=== PATIENT | female | born 1960 | race African-American/Black ===

== ENCOUNTER 2018-10-13 14:15 | Inpatient (IN) ==
[2018-10-13 17:23] LABS: Basophils % 0.3 % (0.0-0.8); Eosinophils # 0.1 10*3/uL (0.0-0.87); Eosinophils % 0.5 % (0.00-10.9); Hematocrit 33.6 VOL% (35.7-47.0); Hemoglobin 10.4 GM/DL (12.0-16.0); Immature Granulocytes % 0.5 %; Immature Granulocytes Absolute 0.07 #; Lymphocytes # 0.7 10*3/uL (1.4-4.0); Lymphocytes % 5.2 % (21.3-54.2); Mean Corpuscular Volume 84.8 FL (87-102); Mean Platelet Volume 8.1 FL (9.6-12.0); Monocytes % 7.4 % (1.7-12.7); Neutrophils % 86.1 % (38.7-73.9); Platelet Count 496 T/CUMM (130-400); Red Blood Count 3.96 MC/CUMM (3.8-5.5); Red Cell Distribution Width 15.7 % (9.3-17.3); White Blood Count 13.6 T/CUMM (4-12)
[2018-10-13 17:32] LABS: INR 1.1; PT Patient Result 11.4 SECS (9.6-12.2)
[2018-10-13 17:46] LABS: Calcium 9.1 MG/DL (8.5-10.1); Osmolality,Calculated 263.4 MOS/KG (273-304)
[2018-10-13] MEDS ORDERED: ONDANSETRON 4 MG/2 ML VIAL IV PRN (19:09)
[2018-10-13] MEDS: ENOXAPARIN 80 MG/0.8 ML SYRINGE SUBCUT SCH (20:39)
[2018-10-13] MEDS: GABAPENTIN 300 MG CAPSULE PO SCH ×2 (20:45→21:59)
[2018-10-13] MEDS: SODIUM CHLORIDE 0.9% 1,000 ML IV SCH (21:59)
[2018-10-14] MEDS ORDERED: traZODone 50 MG TABLET PO ONE (00:15)
[2018-10-14 04:44] LABS: Basophils % 0.3 % (0.0-0.8); Eosinophils # 0.1 10*3/uL (0.0-0.87); Eosinophils % 0.4 % (0.00-10.9); Hematocrit 27.1 VOL% (35.7-47.0); Hemoglobin 8.7 GM/DL (12.0-16.0); Immature Granulocytes % 0.5 %; Immature Granulocytes Absolute 0.06 #; Lymphocytes # 0.5 10*3/uL (1.4-4.0); Lymphocytes % 4.4 % (21.3-54.2); Mean Corpuscular HGB Conc 32.1 GM/DL (32-36); Mean Corpuscular Volume 83.1 FL (87-102); Mean Platelet Volume 8.6 FL (9.6-12.0); Monocytes % 8.3 % (1.7-12.7); Neutrophils % 86.1 % (38.7-73.9); Platelet Count 469 T/CUMM (130-400); Red Blood Count 3.26 MC/CUMM (3.8-5.5); Red Cell Distribution Width 15.5 % (9.3-17.3); White Blood Count 11.2 T/CUMM (4-12)
[2018-10-14 04:48] LABS: INR 1.1; PT Patient Result 11.8 SECS (9.6-12.2); Partial Thromboplastin Time 38.9 SECS (20.8-36.0)
[2018-10-14 05:05] LABS: Calcium 8.7 MG/DL (8.5-10.1)
[2018-10-14 05:06] LABS: Eosinophils 3 % (0-10); Hypochromasia 1+; Lymphocytes 4 % (20-55); Ovalocytes Slight; Platelet Estimate Adequate; Segmented Neutrophils 87 % (50-85); Total Cells Counted 100
[2018-10-14] MEDS: SODIUM CHLORIDE 0.9% 1,000 ML IV SCH ×3 (05:37→21:26)
[2018-10-14] MEDS: GABAPENTIN 300 MG CAPSULE PO SCH ×4 (08:55→20:31)
[2018-10-14] MEDS: PANTOPRAZOLE 40 MG TABLET PO SCH (08:55)
[2018-10-14] MEDS: ENOXAPARIN 80 MG/0.8 ML SYRINGE SUBCUT SCH (09:36)
[2018-10-14] MEDS: POLYETHYLENE GLYCOL POWDER 17 GM PACK PO SCH (10:47)
[2018-10-14] MEDS: POTASSIUM CHLORIDE 20 MEQ TABLET PO SCH ×2 (10:47→16:07)
[2018-10-14] MEDS: amLODIPine 10 MG TABLET PO SCH (16:07)
[2018-10-14 16:08] LABS: Hematocrit 27.9 VOL% (35.7-47.0); Hemoglobin 8.7 GM/DL (12.0-16.0)
[2018-10-14] MEDS: APIXABAN 5 MG TABLET PO SCH (20:26)
[2018-10-15] MEDS: SODIUM CHLORIDE 0.9% 1,000 ML IV SCH ×2 (05:02→12:40)
[2018-10-15] MEDS: POLYETHYLENE GLYCOL POWDER 17 GM PACK PO SCH ×2 (08:09→08:10)
[2018-10-15] MEDS: APIXABAN 5 MG TABLET PO SCH ×2 (08:10→20:37)
[2018-10-15] MEDS: PANTOPRAZOLE 40 MG TABLET PO SCH (08:10)
[2018-10-15] MEDS: GABAPENTIN 300 MG CAPSULE PO SCH ×4 (08:10→20:58)
[2018-10-15] MEDS ORDERED: POTASSIUM CHLORIDE 20 MEQ TABLET PO PRN (16:21)
[2018-10-15] MEDS: amLODIPine 10 MG TABLET PO SCH (16:25)
[2018-10-15 16:39] LABS: Basophils % 0.3 % (0.0-0.8); Eosinophils # 0.1 10*3/uL (0.0-0.87); Eosinophils % 0.7 % (0.00-10.9); Immature Granulocytes % 0.4 %; Immature Granulocytes Absolute 0.05 #; Lymphocytes # 0.6 10*3/uL (1.4-4.0); Lymphocytes % 5.5 % (21.3-54.2); Mean Corpuscular Volume 84.8 FL (87-102); Monocytes % 7.7 % (1.7-12.7); Neutrophils % 85.4 % (38.7-73.9); Platelet Count 409 T/CUMM (130-400); Red Blood Count 3.42 MC/CUMM (3.8-5.5); Red Cell Distribution Width 15.8 % (9.3-17.3); White Blood Count 11.4 T/CUMM (4-12)
[2018-10-15 17:25] LABS: Calcium 8.6 MG/DL (8.5-10.1); Osmolality,Calculated 264.2 MOS/KG (273-304)
[2018-10-16 06:33] LABS: Basophils % 0.4 % (0.0-0.8); Eosinophils # 0.1 10*3/uL (0.0-0.87); Eosinophils % 0.5 % (0.00-10.9); Hematocrit 28.1 VOL% (35.7-47.0); Hemoglobin 8.8 GM/DL (12.0-16.0); Immature Granulocytes % 0.7 %; Immature Granulocytes Absolute 0.08 #; Lymphocytes # 0.7 10*3/uL (1.4-4.0); Mean Corpuscular HGB Conc 31.3 GM/DL (32-36); Mean Corpuscular Volume 84.9 FL (87-102); Mean Platelet Volume 8.5 FL (9.6-12.0); Monocytes % 8.7 % (1.7-12.7); Neutrophils % 83.7 % (38.7-73.9); Platelet Count 468 T/CUMM (130-400); Red Blood Count 3.31 MC/CUMM (3.8-5.5); Red Cell Distribution Width 15.8 % (9.3-17.3)
[2018-10-16 07:10] LABS: Calcium 8.8 MG/DL (8.5-10.1); Osmolality,Calculated 265.1 MOS/KG (273-304)
[2018-10-16] MEDS: GABAPENTIN 300 MG CAPSULE PO SCH ×4 (09:33→21:43)
[2018-10-16] MEDS: APIXABAN 5 MG TABLET PO SCH ×2 (09:33→21:34)
[2018-10-16] MEDS: PANTOPRAZOLE 40 MG TABLET PO SCH (09:33)
[2018-10-16] MEDS: POLYETHYLENE GLYCOL POWDER 17 GM PACK PO SCH (09:34)
[2018-10-16] MEDS: amLODIPine 10 MG TABLET PO SCH (16:39)
[2018-10-17 05:49] LABS: Basophils % 0.2 % (0.0-0.8); Eosinophils # 0.1 10*3/uL (0.0-0.87); Eosinophils % 0.6 % (0.00-10.9); Hematocrit 28.2 VOL% (35.7-47.0); Hemoglobin 8.9 GM/DL (12.0-16.0); Immature Granulocytes % 0.5 %; Immature Granulocytes Absolute 0.05 #; Lymphocytes # 0.6 10*3/uL (1.4-4.0); Lymphocytes % 6.1 % (21.3-54.2); Mean Corpuscular HGB Conc 31.6 GM/DL (32-36); Mean Corpuscular Volume 83.7 FL (87-102); Mean Platelet Volume 8.3 FL (9.6-12.0); Monocytes % 8.3 % (1.7-12.7); Neutrophils % 84.3 % (38.7-73.9); Platelet Count 434 T/CUMM (130-400); Red Blood Count 3.37 MC/CUMM (3.8-5.5); Red Cell Distribution Width 15.8 % (9.3-17.3); White Blood Count 10.4 T/CUMM (4-12)
[2018-10-17 06:04] LABS: Calcium 8.7 MG/DL (8.5-10.1); Osmolality,Calculated 269.8 MOS/KG (273-304)
[2018-10-17 07:58] VITALS: BP 145/74
[2018-10-17] MEDS: APIXABAN 5 MG TABLET PO SCH (08:30)
[2018-10-17] MEDS: GABAPENTIN 300 MG CAPSULE PO SCH (08:30)
[2018-10-17] MEDS: PANTOPRAZOLE 40 MG TABLET PO SCH (08:37)
[2018-10-17] MEDS: POLYETHYLENE GLYCOL POWDER 17 GM PACK PO SCH (08:39)
== END 2018-10-17 10:30 | disposition home or self-care (01) | DRG 197 ==
LOC: N.ED 14:15 → N.EDINP 14:15 → SUPCPDRO 19:18 → SUATTDRO 19:18 → N.EDINP 21:13 → N.4E 21:56 → SUATTDRO 10-15 14:08
PROVIDERS: ADMIT Internal Medicine; ATTEND Internal Medicine

== ENCOUNTER 2018-12-24 12:37 | Inpatient (IN) ==
[2018-12-24] MEDS ORDERED: fentaNYL 100 MCG/2 ML VIAL IV STA (14:07)
[2018-12-24] MEDS ORDERED: ONDANSETRON 4 MG/2 ML VIAL IV STA (14:07)
[2018-12-24] MEDS ORDERED: ORPHENADRINE 60 MG/2 ML VIAL IV STA (14:07)
[2018-12-24 15:04] LABS: Basophils % 0.1 % (0.0-0.8); Eosinophils % 0.1 % (0.00-10.9); Hematocrit 27.5 VOL% (35.7-47.0); Hemoglobin 8.4 GM/DL (12.0-16.0); Immature Granulocytes % 0.7 %; Immature Granulocytes Absolute 0.12 #; Lymphocytes # 0.8 10*3/uL (1.4-4.0); Lymphocytes % 4.9 % (21.3-54.2); Mean Corpuscular HGB Conc 30.5 GM/DL (32-36); Mean Corpuscular Volume 83.6 FL (87-102); Mean Platelet Volume 9.4 FL (9.6-12.0); Monocytes % 6.9 % (1.7-12.7); Neutrophils % 87.3 % (38.7-73.9); Platelet Count 459 T/CUMM (130-400); Red Blood Count 3.29 MC/CUMM (3.8-5.5); Red Cell Distribution Width 19.6 % (9.3-17.3)
[2018-12-24 15:22] LABS: Alanine Aminotransferase < 6 U/L (13-56); Albumin 2.5 G/DL (3.4-5.0); Alkaline Phosphatase 250 U/L (45-117); Aspartate Amino Transferase 9 U/L (0-37); Blood Urea Nitrogen 8 MG/DL (7-18); Calcium 8.8 MG/DL (8.5-10.1); Estimated Glom Filtration Rate 140 ML/MIN; Glucose 97 MG/DL (74-106); Osmolality,Calculated 261.5 MOS/KG (273-304); Troponin I < 0.015 NG/ML (0.00-0.045)
[2018-12-24 16:06] LABS: Band Neutrophils 1 % (0-10); Lymphocytes 4 % (20-55); Segmented Neutrophils 89 % (50-85); Total Cells Counted 100
[2018-12-24 16:07] LABS: Anisocytosis 1+; Hypochromasia Slight; Macrocytosis Slight; Microcytosis 1+; Platelet Estimate Increased; Polychromasia Few
[2018-12-24] MEDS ORDERED: ONDANSETRON 4 MG/2 ML VIAL IV PRN (16:47)
[2018-12-24] MEDS ORDERED: ZALEPLON 5 MG CAPSULE PO PRN (16:47)
[2018-12-24] MEDS ORDERED: PROMETHAZINE 25 MG/1 ML VIAL IM PRN (16:47)
[2018-12-24] MEDS ORDERED: guaiFENesin/DM ER 600-30 MG TABLET PO PRN (16:47)
[2018-12-24] MEDS ORDERED: DOCUSATE SODIUM 100 MG CAPSULE PO PRN (16:47)
[2018-12-24] MEDS ORDERED: BISACODYL 5 MG TABLET PO PRN (16:47)
[2018-12-24] MEDS ORDERED: diphenhydrAMINE CAP 25 MG CAPSULE PO PRN (16:47)
[2018-12-24] MEDS ORDERED: ACETAMINOPHEN 325 MG TABLET PO PRN (16:47)
[2018-12-24 17:01] LABS: Apearance,Urine Slightly Hazy (Clear); Bacteria,Urine Moderate /HPF (Few); Bilirubin,Urine Negative (Negative); Blood, Urine Negative (Negative); Glucose,Urine (UA) Negative (Negative); Ketones,Urine Negative (Negative); Mucus,Urine Few /LPF (Occasional); Nitrite,Urine Negative (Negative); Protein,Urine Negative; RBC,Urine 2 /HPF (0-4); Squamous Epithelial Cell,Urine Occasional /HPF (0-10); Urine Color Yellow (Yellow); Urine Specific Gravity 1.026 (1.001-1.035); WBC,Urine 3 /HPF (0-6)
[2018-12-24] MEDS: SODIUM CHLORIDE 0.9% 1,000 ML IV SCH (19:08)
[2018-12-24] MEDS: MEROPENEM 500 MG in SODIUM CHLORIDE 0.9% 100 ML IV SCH (19:08)
[2018-12-24] MEDS: PANTOPRAZOLE 40 MG TABLET PO SCH (19:08)
[2018-12-24] MEDS: MORPHINE 4 MG/1 ML VIAL IV PRN (19:09)
[2018-12-24] MEDS ORDERED: ENOXAPARIN 40 MG/0.4 ML SYRINGE SUBCUT SCH (21:00)
[2018-12-24] MEDS: APIXABAN 5 MG TABLET PO SCH (21:12)
[2018-12-24] MEDS: VANCOMYCIN INJ 1,250 MG in SODIUM CHLORIDE 0.9% 250 ML IV SCH (21:13)
[2018-12-24] MEDS: GABAPENTIN 300 MG CAPSULE PO SCH (21:18)
[2018-12-25] MEDS: MEROPENEM 500 MG in SODIUM CHLORIDE 0.9% 100 ML IV SCH ×4 (01:10→17:46)
[2018-12-25 06:01] LABS: Basophils % 0.1 % (0.0-0.8); Eosinophils % 0.1 % (0.00-10.9); Hematocrit 22.7 VOL% (35.7-47.0); Immature Granulocytes % 0.9 %; Immature Granulocytes Absolute 0.12 #; Lymphocytes # 0.6 10*3/uL (1.4-4.0); Mean Corpuscular HGB Conc 30.4 GM/DL (32-36); Mean Corpuscular Volume 84.1 FL (87-102); Mean Platelet Volume 9.6 FL (9.6-12.0); Monocytes % 8.4 % (1.7-12.7); Neutrophils % 86.5 % (38.7-73.9); Platelet Count 452 T/CUMM (130-400); Red Cell Distribution Width 19.6 % (9.3-17.3)
[2018-12-25 06:02] LABS: Hemoglobin 6.9 GM/DL (12.0-16.0)
[2018-12-25] MEDS: SODIUM CHLORIDE 0.9% 1,000 ML IV SCH ×2 (06:14→14:17)
[2018-12-25 06:26] LABS: Band Neutrophils 1 % (0-10); Lymphocytes 5 % (20-55); Metamyelocytes 1 %; Segmented Neutrophils 85 % (50-85); Total Cells Counted 100
[2018-12-25 06:27] LABS: Platelet Estimate Increased
[2018-12-25 06:34] LABS: Alanine Aminotransferase < 6 U/L (13-56); Albumin 2.1 G/DL (3.4-5.0); Alkaline Phosphatase 221 U/L (45-117); Aspartate Amino Transferase 9 U/L (0-37); Blood Urea Nitrogen 6 MG/DL (7-18); Calcium 8.3 MG/DL (8.5-10.1); Estimated Glom Filtration Rate 150 ML/MIN; Glucose 69 MG/DL (74-106); Osmolality,Calculated 265.1 MOS/KG (273-304); Total Protein 6.1 G/DL (6.4-8.3)
[2018-12-25] MEDS ORDERED: SODIUM CHLORIDE 0.9% 1,000 ML IV PRN (09:13)
[2018-12-25] MEDS: fentaNYL 25 MCG/HR PATCH TRANSDERM SCH (10:59)
[2018-12-25] MEDS: APIXABAN 5 MG TABLET PO SCH ×2 (11:06→21:55)
[2018-12-25] MEDS: PANTOPRAZOLE 40 MG TABLET PO SCH (11:06)
[2018-12-25] MEDS: amLODIPine 10 MG TABLET PO SCH (11:06)
[2018-12-25] MEDS: GABAPENTIN 300 MG CAPSULE PO SCH ×3 (11:06→21:55)
[2018-12-25] MEDS: VANCOMYCIN INJ 1,250 MG in SODIUM CHLORIDE 0.9% 250 ML IV SCH ×2 (12:53→21:54)
[2018-12-25] MEDS: MORPHINE 4 MG/1 ML VIAL IV PRN (14:16)
[2018-12-26] MEDS: MORPHINE 4 MG/1 ML VIAL IV PRN ×3 (00:50→20:56)
[2018-12-26] MEDS: MEROPENEM 500 MG in SODIUM CHLORIDE 0.9% 100 ML IV SCH ×4 (00:54→17:36)
[2018-12-26 05:59] LABS: Basophils % 0.1 % (0.0-0.8); Eosinophils % 0.1 % (0.00-10.9); Hematocrit 27.8 VOL% (35.7-47.0); Hemoglobin 8.7 GM/DL (12.0-16.0); Immature Granulocytes % 0.5 %; Immature Granulocytes Absolute 0.08 #; Lymphocytes # 0.6 10*3/uL (1.4-4.0); Lymphocytes % 4.2 % (21.3-54.2); Mean Corpuscular HGB Conc 31.3 GM/DL (32-36); Mean Platelet Volume 9.7 FL (9.6-12.0); Monocytes % 10.1 % (1.7-12.7); Platelet Count 474 T/CUMM (130-400); Red Blood Count 3.35 MC/CUMM (3.8-5.5); Red Cell Distribution Width 18.5 % (9.3-17.3); White Blood Count 14.6 T/CUMM (4-12)
[2018-12-26 06:52] LABS: Lymphocytes 7 % (20-55); Platelet Estimate Increased; Segmented Neutrophils 85 % (50-85); Total Cells Counted 100
[2018-12-26 06:53] LABS: Hypochromasia Slight
[2018-12-26] MEDS: VANCOMYCIN INJ 1,250 MG in SODIUM CHLORIDE 0.9% 250 ML IV SCH ×2 (07:44→20:56)
[2018-12-26] MEDS: GABAPENTIN 300 MG CAPSULE PO SCH ×3 (08:41→20:58)
[2018-12-26] MEDS: APIXABAN 5 MG TABLET PO SCH ×2 (08:41→20:58)
[2018-12-26] MEDS: amLODIPine 10 MG TABLET PO SCH (08:41)
[2018-12-26] MEDS: PANTOPRAZOLE 40 MG TABLET PO SCH (08:42)
[2018-12-26] MEDS: SODIUM CHLORIDE 0.9% 1,000 ML IV SCH (13:17)
[2018-12-27] MEDS: MEROPENEM 500 MG in SODIUM CHLORIDE 0.9% 100 ML IV SCH ×4 (01:22→19:59)
[2018-12-27] MEDS: MORPHINE 4 MG/1 ML VIAL IV PRN ×2 (05:36→09:56)
[2018-12-27] MEDS: VANCOMYCIN INJ 1,250 MG in SODIUM CHLORIDE 0.9% 250 ML IV SCH ×2 (09:07→21:48)
[2018-12-27] MEDS: PANTOPRAZOLE 40 MG TABLET PO SCH (09:10)
[2018-12-27] MEDS: amLODIPine 10 MG TABLET PO SCH (09:10)
[2018-12-27] MEDS: APIXABAN 5 MG TABLET PO SCH ×2 (09:14→21:40)
[2018-12-27] MEDS: GABAPENTIN 300 MG CAPSULE PO SCH ×3 (09:14→21:40)
[2018-12-27] MEDS: oxyCODONE/ACETAMINOPHEN 5-325 MG TABLET PO PRN ×2 (13:15→19:57)
[2018-12-27] MEDS ORDERED: ALPRAZolam 0.25 MG TABLET PO PRN (18:03)
[2018-12-27] MEDS: clonazePAM 0.5 MG TABLET PO SCH (21:40)
[2018-12-28] MEDS: MEROPENEM 500 MG in SODIUM CHLORIDE 0.9% 100 ML IV SCH ×3 (02:10→14:22)
[2018-12-28] MEDS: oxyCODONE/ACETAMINOPHEN 5-325 MG TABLET PO PRN ×3 (02:11→12:50)
[2018-12-28] MEDS: SODIUM CHLORIDE 0.9% 1,000 ML IV SCH ×2 (05:00→14:34)
[2018-12-28] MEDS: fentaNYL 25 MCG/HR PATCH TRANSDERM SCH (08:21)
[2018-12-28] MEDS: APIXABAN 5 MG TABLET PO SCH (08:23)
[2018-12-28] MEDS: amLODIPine 10 MG TABLET PO SCH (08:24)
[2018-12-28] MEDS: clonazePAM 0.5 MG TABLET PO SCH (08:24)
[2018-12-28] MEDS: PANTOPRAZOLE 40 MG TABLET PO SCH (08:24)
[2018-12-28] MEDS: GABAPENTIN 300 MG CAPSULE PO SCH ×2 (08:24→14:37)
[2018-12-28] MEDS ORDERED: fentaNYL 50 MCG/HR PATCH TRANSDERM SCH (09:00)
[2018-12-28 11:27] VITALS: BP 103/46
[2018-12-28] MEDS: VANCOMYCIN INJ 1,250 MG in SODIUM CHLORIDE 0.9% 250 ML IV SCH (14:22)
== END 2018-12-28 16:40 | disposition home health service (06) | DRG 530 ==
LOC: N.ED 12:37 → SUATTDRO 16:47 → N.EDINP 16:47 → N.4E 17:57
PROVIDERS: ADMIT Internal Medicine; ATTEND Internal Medicine